=== PATIENT | female | born 1980 | race Caucasian/White ===

== ENCOUNTER 2017-12-03 22:59 | Emergency (ER) | payer SELFPAY | END 2017-12-03 23:27 | disposition left against medical advice (07) | LOC: NEPE 22:59 | DX: Z04.3 Encounter for examination and observation following other accident (principal); Z53.21 Procedure and treatment not carried out due to patient leaving prior to being seen by health care provider; W19.XXXA Unspecified fall, initial encounter | CPT/HCPCS: 99281 ==